=== PATIENT | male | born 1955 | race Caucasian/White ===

== ENCOUNTER 2022-07-11 13:53 | Observation (INO) ==
--- NOTE | 2022-07-11 14:20 | Emergency Department Note ---
Impression & Plan Transient cerebral ischemia, Expressive aphasia ED Provider Note NAME: CARTER BERNSTEIN AGE: 67 SEX: M : 1955 ARRIVES VIA: Walk-In INFORMANT: Patient ED PROVIDER(S): Gael Santamaria DO CHIEF COMPLAINT: word finding HPI: Patient is a 59-year-old male with a previous history of a CABG, multiple stents that presents to the ER for expressive aphasia which occurred around 11- 11:30. Lasted for about 10 minutes. Has resolved. Denies any change in vision. Admits to mild headache. No chest pain or shortness of breath. No focal weakness in the arms or legs. Admits to some intermittent paresthesias in the arms but that is fairly typical for him. No other exacerbating or remitting factors. He is taking Plavix. ROS: See above HPI for pertinent positives & negatives. A total of 10 systems reviewed and were otherwise negative. PAST MEDICAL HISTORY:See Below PAST SURGICAL HISTORY:See Below FAMILY HISTORY:See Below SOCIAL HISTORY:See Below HOME MEDICATIONS:See Below ALLERGIES:See Below VITALS:See Below PHYSICAL EXAMINATION: GENERAL: Sitting up in bed, alert, well appearing, well nourished, no distress, non-toxic EYE EXAM: normal conjunctiva. PERRL and EOM's intact. OROPHARYNX: no exudate, no erythema, lips, buccal mucosa, and tongue normal and mucous membranes are moist NECK: supple, no nuchal rigidity, no adenopathy, non-tender LUNGS: Clear to auscultation. Normal chest wall mechanics HEART: no murmurs, S1 normal and S2 normal ABDOMEN: abdomen soft, non-tender, normo-active bowel sounds, no masses, no rebound or guarding. BACK: Back is symmetrical on inspection and there is no deformity, no midline tenderness, no CVA tenderness. SKIN: no rashes and no bruising UPPER EXTREMITIES: upper extremities are grossly normal. LOWER EXTREMITIES: No pitting edema. NEURO EXAM: Normal sensorium, cranial nerves II-XII intact, normal speech, no weakness of arms, no weakness of legs. No drift. Finger to nose intact. Gross sensation intact. [id number]-pt-[id number] intact. Rapid alternating movements of upper extremities intact MEDICAL DECISION MAKING: Patient is a 59-year-old male who presents ER for the boasting complaint. IV was established with orders obtained. Labs show no significant leukocytosis. Mild anemia 11.8. INR unremarkable. BMP with slightly low chloride at 108. LFTs bilirubin was unremarkable. Troponin was negative. COVID was negative. CT of the head was negative. Unable to perform angio secondary to contrast allergy. He was updated bedside. With the expressive aphasia which after juan f nahid with family lasted for close to 1 hour patient was agreeable for observation. He was seen evaluated by hospitalist service after discussion with Dr. Juno Palacio. Triage Nursing notes reviewed. Limited review of prior medical records performed Vital Signs: reviewed and remarkable for htn Differential diagnosis: Differential Diagnosis includes but is not limited to ischemic Stroke, hemorrhagic stroke, bells palsy, mass, neoplasm, migraine headache, seizure, subarachnoid hemorrhage, TIA, and transient global amnesia. ER treatment provided: See below Diagnostics interpreted by me: ECG: Sinus rhythm rate of 75 Normal axis T wave version inferior leads QTC 435 Cardiac Monitoring: An order was placed for continuous cardiac monitoring. The monitor shows a rate of 80 with sinus rhythm. Laboratory studies: As stated above and show below. Imaging studies: T head was negative Consultation(s): Discussed with Dr. Juno Palacio for further evaluation Procedures: none Critical Care: None Past Med/Surg History Social History Smoking Status: Never smoker Preferred Language: Peruvian Feels Safe at Home: Yes Allergies Allergies Allergy/AdvReac Type Severity Reaction Status Date / Time Penicillins Allergy Intermediate Hives Verified 07/11/22 15:53 Iodinated Contrast Media AdvReac Mild Burning at Verified 07/11/22 15:53 site Home Meds Home Medications Medication Instructions Recorded Confirmed Align Probiotic 1 tab PO QAM 07/11/22 07/11/22 atorvastatin 80 mg tablet 80 mg PO HS 07/11/22 07/11/22 biotin 10 mg tablet 10 mg PO QAM 07/11/22 07/11/22 carvedilol 6.25 mg tablet 6.25 mg PO BID 07/11/22 07/11/22 cholecalciferol (vitamin D3) 50 50 mcg PO BID 07/11/22 07/11/22 mcg (2,000 unit) capsule (Vitamin D3) clopidogrel 75 mg tablet 75 mg PO QAM 07/11/22 07/11/22 coQ10 (ubiquinol) 200 mg capsule 200 mg PO QAM 07/11/22 07/11/22 dapagliflozin 10 mg tablet 10 mg PO QAM 07/11/22 07/11/22 ([facility]) glucosamine sulf dipot 1 cap PO QAM 07/11/22 07/11/22 chlr,msm,chond 550 mg-C 30 mg-dion 1 mg capsule (Glucosamine Chondroitin) multivitamin 1 tab PO QAM 07/11/22 07/11/22 omega 9-ypx-nkw-fish oil 1,200 mg 1 cap PO BID 07/11/22 07/11/22 (144 mg-216 mg) capsule (Fish Oil) sacubitril 24 mg-valsartan 26 mg 1 tab PO BID 07/11/22 07/11/22 tablet (Entresto) Results & Data (ED) Vital Signs Vital Signs - 24 hr 07/11/22 14:01 07/11/22 14:42 07/11/22 16:00 Temperature 36.5 C Temperature Source Temporal Artery Scan Pulse Rate 65 Pulse Rate [Left Finger] 64 89 Pulse Rhythm [Left Finger] Regular Regular Pulse Strength [Left Finger] Respiratory Rate 20 21 18 Respiratory Effort / Characteristics Non-Labored Non-Labored Respiratory Depth Normal Normal Normal Blood Pressure 156/85 H Blood Pressure [Right Arm] 150/109 H 145/108 H Blood Pressure Mean 108 Blood Pressure Mean [Right Arm] 122 120 Blood Pressure Position [Right Arm] Pulse Oximetry 98 98 99 Oxygen Delivery Method Room Air Room Air Room Air Sepsis Recent Fever Within 48 Hours No Sepsis New/Unexplained Change in Mental Status Yes Sepsis Action Taken by Nursing No Action Required 07/11/22 14:45 07/11/22 17:00 07/11/22 20:11 Temperature 36.5 C Temperature Source Oral Pulse Rate 60 Pulse Rate [Left Finger] 87 78 Pulse Rhythm [Left Finger] Regular Regular Pulse Strength [Left Finger] Normal Respiratory Rate 22 20 14 Respiratory Effort / Characteristics Non-Labored Spontaneous Respiratory Depth Normal Normal Normal Blood Pressure Blood Pressure [Right Arm] 144/94 H 145/108 H Blood Pressure Mean Blood Pressure Mean [Right Arm] 110 120 Blood Pressure Position [Right Arm] Sitting Pulse Oximetry 99 97 98 Oxygen Delivery Method Room Air Room Air Room Air Sepsis Recent Fever Within 48 Hours No Sepsis New/Unexplained Change in Mental Status No Sepsis Action Taken by Nursing No Action Required Laboratory Data Result diagrams: 07/11/22 15:34 07/11/22 15:34 Lab Results 07/11/22 07/11/22 07/11/22 Range/Units 14:45 15:34 15:34 WBC 6.06 (4.8-10.8) K/ul RBC 4.32 L (4.63-6.08) M/uL Hgb 11.8 L (14.0-18.0) g/dl Hct 37.6 L (40.1-51.0) % MCV 87.0 (80.0-100.0) fL MCH 27.3 (25.0-34.0) pg MCHC 31.4 L (32.0-36.0) g/dL RDW Std Deviation 42.7 (36.4-46.3) fL RDW Coeff of Maverick 13.3 (11.5-14.5) % Plt Count 276 (130-400) K/uL MPV 9.0 L (9.4-12.4) fL Immature Gran % (Auto) 0.2 % Neut % (Auto) 61.2 % Lymph % (Auto) 24.3 % Chaves % (Auto) 11.4 % Eos % (Auto) 2.1 % Baso % (Auto) 0.8 % Neut # (Auto) 3.71 (1.4-6.5) K/uL Lymph # (Auto) 1.47 (1.2-3.4) K/uL Chaves # (Auto) 0.69 (0.24-0.82) K/uL Eos # (Auto) 0.13 (0-0.50) K/uL Baso # (Auto) 0.05 (0-0.2) K/uL Immature Gran # (Auto) 0.01 (0.00-0.02) K/uL PT 11.9 (9.0-12.0) Seconds INR 1.1 (0.9-1.1) APTT 26.2 (21.0-31.0) Seconds PTT Ratio 1.0 Sodium (136-145) mmol/L Potassium (3.5-5.1) mmol/L Chloride (98-107) mmol/L Carbon Dioxide (21-32) mmol/L Anion Gap (3-11) BUN (6-23) mg/dl Creatinine (0.6-1.4) mg/dl Est Cr Clr Drug Dosing ml/min Est GFR ( Amer) ml/min Est GFR (Non-Af Amer) ml/min BUN/Creatinine Ratio (10-20) Glucose (70-99(Fasting)) mg/dl Calcium (8.5-10.1) mg/dl Magnesium (1.7-2.4) mg/dl Total Bilirubin (0.2-1.0) mg/dl AST (13-39) U/L ALT (7-52) U/L Alkaline Phosphatase (34-104) U/L Troponin I High Sens (0-20) pg/ml Total Protein (6.0-8.3) gm/dl Albumin (3.4-5.0) gm/dl Globulin (2.5-4.0) gm/dl Albumin/Globulin Ratio (0.9-2) SARS-CoV-2, RNA, NAAT NEGATIVE (NEGATIVE) 07/11/22 Range/Units 15:34 WBC (4.8-10.8) K/ul RBC (4.63-6.08) M/uL Hgb (14.0-18.0) g/dl Hct (40.1-51.0) % MCV (80.0-100.0) fL MCH (25.0-34.0) pg MCHC (32.0-36.0) g/dL RDW Std Deviation (36.4-46.3) fL RDW Coeff of Maverick (11.5-14.5) % Plt Count (130-400) K/uL MPV (9.4-12.4) fL Immature Gran % (Auto) % Neut % (Auto) % Lymph % (Auto) % Chaves % (Auto) % Eos % (Auto) % Baso % (Auto) % Neut # (Auto) (1.4-6.5) K/uL Lymph # (Auto) (1.2-3.4) K/uL Chaves # (Auto) (0.24-0.82) K/uL Eos # (Auto) (0-0.50) K/uL Baso # (Auto) (0-0.2) K/uL Immature Gran # (Auto) (0.00-0.02) K/uL PT (9.0-12.0) Seconds INR (0.9-1.1) APTT (21.0-31.0) Seconds PTT Ratio Sodium 138 (136-145) mmol/L Potassium 4.5 (3.5-5.1) mmol/L Chloride 108 H (98-107) mmol/L Carbon Dioxide 23 (21-32) mmol/L Anion Gap 7 (3-11) BUN 16 (6-23) mg/dl Creatinine 0.89 (0.6-1.4) mg/dl Est Cr Clr Drug Dosing 82.0 ml/min Est GFR ( Amer) 101.8 ml/min Est GFR (Non-Af Amer) 87.9 ml/min BUN/Creatinine Ratio 18.0 (10-20) Glucose 104 H (70-99(Fasting)) mg/dl Calcium 9.5 (8.5-10.1) mg/dl Magnesium 2.0 (1.7-2.4) mg/dl Total Bilirubin 0.5 (0.2-1.0) mg/dl AST 15 (13-39) U/L ALT 18 (7-52) U/L Alkaline Phosphatase 61 (34-104) U/L Troponin I High Sens 7.2 (0-20) pg/ml Total Protein 6.5 (6.0-8.3) gm/dl Albumin 4.2 (3.4-5.0) gm/dl Globulin 2.3 L (2.5-4.0) gm/dl Albumin/Globulin Ratio 1.8 (0.9-2) SARS-CoV-2, RNA, NAAT (NEGATIVE) Administered Medications Discontinued Medications Aspirin (Aspirin 81 Mg Chew) 324 mg PO NOW STA Stop: 07/11/22 20:03 Last Admin: 07/11/22 20:10 Dose: 324 mg Documented By: JE Imaging Data Radiologist's Impression: Chest X-Ray 07/11/22 14:17 SINGLE VIEW CHEST CLINICAL HISTORY: Stroke like symptoms. FINDINGS: 2 AP, portable, upright chest radiographs are obtained. No prior studies are available for comparison at the time of dictation. The patient is status post midline sternotomy appear The heart is enlarged noting atherosclerotic calcification of the thoracic aorta. The pulmonary vasculature is noncongested. There is mild bibasilar scarring/atelectasis. Nipple shadows project over the lung bases. The lungs and pleural spaces are otherwise clear. No pneumothorax is seen. There are healed right-sided rib fractures. IMPRESSION: Cardiomegaly with no acute cardiopulmonary abnormality. ACT 112: Negative or not required by law. Electronically signed by: Tai Link M.D. 07/11/2022 3:[address] 07/11/22 14:17 CT SCAN OF THE BRAIN WITHOUT IV CONTRAST CLINICAL HISTORY: Strokelike symptoms. Change in mental status. COMPARISON STUDY: No priors. TECHNIQUE: Unenhanced axial CT scan of the brain is performed from the vertex to the skull base. A dose lowering technique was utilized adhering to the principles of ALARA. CT DOSE: 729.78 mGycm FINDINGS: Brain parenchyma: There is age-related involutional change noting moderate subcortical and periventricular microangiopathic disease. There is no hemorrhage, mass effect, or evidence of acute territorial ischemia by CT criteria. Williamson-white matter differentiation is preserved. No extra-axial fluid collection is seen. Ventricles, sulci, cisterns: Prominent secondary to involutional change. Intracranial vasculature: There is atherosclerotic calcification of the cavernous carotid and vertebral arteries. Calvarium: Unremarkable. Sinuses and mastoids: The visualized paranasal sinuses are clear. The mastoid air cells are well pneumatized. Orbits: The bony orbits are grossly intact. IMPRESSION: There is no hemorrhage, mass effect, or evidence of acute territorial ischemia by CT criteria. ACT 112: Negative or not required by law. Electronically signed by: Tai Link M.D. 07/11/2022 3:09 PM Discharge Plan Visit Data Chief Complaint: TIA Symptoms Stated Complaint: SLURRED SPEECH, HIGH BLOOD PRESSURE ED Provider: Gael Santamaria Discharge Problem: Transient cerebral ischemia, Expressive aphasia Forms Stand Alone Forms: My [facility] Prescriptions Prescriptions: No Action Align Probiotic 1 tab PO QAM multivitamin Tablet 1 tab PO QAM biotin 10 mg Tablet 10 mg PO QAM atorvastatin 80 mg tablet 80 mg PO HS carvedilol 6.25 mg tablet 6.25 mg PO BID clopidogrel 75 mg tablet 75 mg PO QAM cholecalciferol (vitamin D3) [Vitamin D3] 50 mcg (2,000 unit) Capsule 50 mcg PO BID omega 7-bcg-vek-fish oil [Fish Oil] 1,200 (144-216) mg Capsule 1 cap PO BID coQ10 (ubiquinol) 200 mg Capsule 200 mg PO QAM Farxiga 10 mg tablet 10 mg PO QAM Entresto 24-26 mg tablet 1 tab PO BID Glucosamine Chondroitin 550-30-1 mg Capsule 1 cap PO QAM Referrals Referrals: PCP,NO [Primary Care Provider] -
--- NOTE | 2022-07-11 15:05 | XRay Report ---
SINGLE VIEW CHEST CLINICAL HISTORY: Stroke like symptoms. FINDINGS: 2 AP, portable, upright chest radiographs are obtained. No prior studies are available for comparison at the time of dictation. The patient is status post midline sternotomy appear The heart i s enlarged noting atherosclerotic calcification of the thoracic aorta. The pulmonary vasculature is n oncongested. There is mild bibasilar scarring/atelectasis. Nipple shadows project over the lung bases . The lungs and pleural spaces are otherwise clear. No pneumothorax is seen. There are healed right-s ided rib fractures. IMPRESSION: Cardiomegaly with no acute cardiopulmonary abnormality. ACT 112: Negative or not required by law. Electronically signed by: Tai Link M.D. 07/11/2022 3:04 PM
--- NOTE | 2022-07-11 15:11 | CT Scan Report ---
CT SCAN OF THE BRAIN WITHOUT IV CONTRAST CLINICAL HISTORY: Strokelike symptoms. Change in mental status. COMPARISON STUDY: No priors. TECHNIQUE: Unenhanced axial CT scan of the brain is performed from the vertex to the skull base. A do se lowering technique was utilized adhering to the principles of ALARA. CT DOSE: 729.78 mGycm FINDINGS: Brain parenchyma: There is age-related involutional change noting moderate subcortical and periventri cular microangiopathic disease. There is no hemorrhage, mass effect, or evidence of acute territorial ischemia by CT criteria. Williamson-white matter differentiation is preserved. No extra-axial fluid collec tion is seen. Ventricles, sulci, cisterns: Prominent secondary to involutional change. Intracranial vasculature: There is atherosclerotic calcification of the cavernous carotid and vertebr al arteries. Calvarium: Unremarkable. Sinuses and mastoids: The visualized paranasal sinuses are clear. The mastoid air cells are well pneu matized. Orbits: The bony orbits are grossly intact. IMPRESSION: There is no hemorrhage, mass effect, or evidence of acute territorial ischemia by CT shon delcid. ACT 112: Negative or not required by law. Electronically signed by: Tai Link M.D. 07/11/2022 3:09 PM
[2022-07-11 15:48] LABS: Basophils # (auto) 0.05 K/uL (0-0.2); Basophils % (auto) 0.8 %; Eosinophils # (auto) 0.13 K/uL (0-0.50); Eosinophils % (auto) 2.1 %; Hematocrit (blood only) 37.6 % (40.1-51.0); Hemoglobin 11.8 g/dl (14.0-18.0); Immature Granulocytes # (auto) 0.01 K/uL (0.00-0.02); Immature Granulocytes % (auto) 0.2 %; Lymphocytes # (auto) 1.47 K/uL (1.2-3.4); Lymphocytes % (auto) 24.3 %; Mean Corpuscular Hemoglobin 27.3 pg (25.0-34.0); Mean Corpuscular Hgb Conc 31.4 g/dL (32.0-36.0); Monocytes # (auto) 0.69 K/uL (0.24-0.82); Monocytes % (auto) 11.4 %; Neutrophils # (auto) 3.71 K/uL (1.4-6.5); Neutrophils % (auto) 61.2 %; Platelet Count 276 K/uL (130-400); RDW Coefficient of Variation 13.3 % (11.5-14.5); RDW Standard Deviation 42.7 fL (36.4-46.3); Red Blood Count 4.32 M/uL (4.63-6.08); White Blood Count 6.06 K/ul (4.8-10.8)
[2022-07-11 15:57] LABS: INR 1.1 (0.9-1.1); Partial Thromboplastin Time 26.2 Seconds (21.0-31.0); Prothrombin Time 11.9 Seconds (9.0-12.0)
[2022-07-11 16:13] LABS: Albumin Globulin Ratio 1.8 (0.9-2); Albumin Level 4.2 gm/dl (3.4-5.0); Bilirubin,Total 0.5 mg/dl (0.2-1.0); Calcium 9.5 mg/dl (8.5-10.1); Est GFR (African American) 101.8 ml/min; Est GFR (Non-African American) 87.9 ml/min; Globulin 2.3 gm/dl (2.5-4.0); Potassium 4.5 mmol/L (3.5-5.1); Total Protein 6.5 gm/dl (6.0-8.3); Troponin I High Sensitivity 7.2 pg/ml (0-20)
--- NOTE | 2022-07-11 18:24 | History & Physical Report ---
Date of Service July 11, 2022 Assessment & Plan (1) TIA (transient ischemic attack): Plan: 67 year old man with significant cardiovascular history (VT x3, PCI x3) who presented to the ED with new-onset expressive aphasia with negative workup so far who is admitted overnight for full TIA/stroke workup. TIA: CTA head and neck. DAPT: ASA 324 mg, Plavix 75 mg. Awaiting MRI brain in the AM. CAD: continue home regimen: Entresto bid, atorvastatin, carvedilol, dapagliflozin GERD: Famotidine 20 mg. Code: Full code Dispo: Med-Surg with telemetry FEN/GI: Heart healthy DVT Prophylaxis: ASA 324 mg, Plavix 75 mg PT/OT: Consults: None Case management: (2) GERD (gastroesophageal reflux disease): (3) Coronary artery disease: History of Present Illness Primary Care Provider: NO PCP John is a 59 year old man with a PMH of CABG x3, and stents x3, who presents today with a complaint of difficulty word finding that began suddenly this morning. He recalls being able to understand his but being unable to find the words to respond. His recalls he seemed like he was mumbling. His symptoms lasted about 5 minutes before resolving spontaneously. Prior to this episode, he was in his usual state of health and had never had a similar experience before. ROS+ lightheadedness, which he attributes to being dehydrated. Otherwise, he denies LOC, receptive aphasia, vision changes, SOB, chest pain, nausea, vomiting, or motor or sensory weakness. In addition to his CAD, he also has GERD (secondary to distal esophageal narrowing), and osteoarthritis. He is on Plavix monotherapy for anticoagulation. He also takes atorvastatin, Coreg, Farxiga, and Entresto. He has a contrast dye allergy, for which he is usually premedicated without issue. In the ED, CT head and CXR were negative for acute ischemic process. Labs were mostly within normal ranges. Initial troponin was negative. He received aspirin. Plavix was held as he'd taken his morning dose. He was admitted with pending CTA head/neck, MRI brain. Allergies Allergy/AdvReac Type Severity Reaction Status Date / Time Penicillins Allergy Intermediate Hives Verified 07/11/22 15:53 Iodinated Contrast Media AdvReac Mild Burning at Verified 07/11/22 15:53 site Home Medications Medication Instructions Recorded Confirmed Type Align Probiotic 1 tab PO QAM 07/11/22 07/11/22 History atorvastatin 80 mg tablet 80 mg PO HS 07/11/22 07/11/22 History biotin 10 mg tablet 10 mg PO QAM 07/11/22 07/11/22 History carvedilol 6.25 mg tablet 6.25 mg PO BID 07/11/22 07/11/22 History cholecalciferol (vitamin D3) 50 50 mcg PO BID 07/11/22 07/11/22 History mcg (2,000 unit) capsule (Vitamin D3) clopidogrel 75 mg tablet 75 mg PO QAM 07/11/22 07/11/22 History coQ10 (ubiquinol) 200 mg capsule 200 mg PO QAM 07/11/22 07/11/22 History dapagliflozin 10 mg tablet 10 mg PO QAM 07/11/22 07/11/22 History (Farxiga) glucosamine sulf dipot 1 cap PO QAM 07/11/22 07/11/22 History chlr,msm,chond 550 mg-C 30 mg-dion 1 mg capsule (Glucosamine Chondroitin) multivitamin 1 tab PO QAM 07/11/22 07/11/22 History omega 4-ncl-niv-fish oil 1,200 mg 1 cap PO BID 07/11/22 07/11/22 History (144 mg-216 mg) capsule (Fish Oil) sacubitril 24 mg-valsartan 26 mg 1 tab PO BID 07/11/22 07/11/22 History tablet (Entresto) Past Med/Surg History Social History Smoking Status: Former smoker Hx Alcohol Use: Yes Alcohol type: beer and wine Hx Substance Use: Yes Preferred Language: Polish Beliefs That Will Affect Care: None Current Living Situation: Spouse Other Information That Helps Us Care for You: No Feels Safe at Home: Yes Safety Concerns: Feels Safe At This Time Assistive Devices: Hearing Aid - Bilateral Review of Systems Review of Systems: All systems reviewed & are unremarkable except as noted in HPI & below Physical Exam Physical Exam: General: Well-appearing, alert, interactive, and in no acute distress. HEENT: Normocephalic, atraumatic. EOM intact. Good conjugate gaze. Nares patent. Moist mucosal membranes. Neck: Supple. No lymphadenopathy. Normal ROM. CV: Regular rate and rhythm. Normal S1 and S2. No murmurs gallops or rubs. Respiratory: Normal respiratory effort. Lungs clear to auscultation bilaterally. No crackles, rhonchi, or wheezes. Abdomen: Soft, nondistended abdomen. No bruits heard on auscultation. No tenderness to deep palpation. No guarding or rebound. Extremities: Capillary refill <2 sec. 2+ dp equal bilaterally. No pedal edema. Neuro: Alert and oriented x3. Mild right sided droop on CN exam (CN7). Neuro exam otherwise revealed no focal cerebellar, motor or sensory deficits. Skin: Clean, dry, and intact. No rashes, bruises, or erythema. Results & Data Results & Data ([facility]) Vital Signs (Past 12 Hours) Vital Signs Temp Pulse Pulse Resp BP BP Pulse Ox 07/11/22 14:45 36.5 C 60 22 99 07/11/22 16:00 89 18 145/108 H 99 07/11/22 14:42 64 21 150/109 H 98 07/11/22 14:01 36.5 C 65 20 156/85 H 98 O2 Del Method 07/11/22 14:45 Room Air 07/11/22 16:00 Room Air 07/11/22 14:42 Room Air 07/11/22 14:01 Room Air Supervising Physician Co-Signing Physician Notes I personally saw and examined the patient. I verified all garcia points and agree with resident physician Dr Maribell Hernandez with the following exceptions and/or additions: 67 year old male with extensive cardiovascular history from out of area presents with 5-10 minute episode of expressive dysphasia as noted by patient and his . Could understand find but unable to get the right words out. Came out garbled. No other symptoms such as facial droops, hearing, vision, extremity weakness or change in sensation. O/E HS1+2, no murmurs, Chest CTAB, Abdo SNT, CN 2-> 12 intact, no pronator drift, no extremity weakness or change in sensation A/P Suspected TIA - ABCD2 score - 3. CT head negative for intracranial pathology. Ok to have CT angiogram head and neck although need pre-treatment for this. MRI brain w/o contrast routine. Given complete resolution of symptoms no need for speech, PT or OT evals. Will also defer neurology evaluation. Continue his usual blood pressure medication as full stroke not suspected. Lipid panel and HbA1C with AM labs. Recommend DAPT and will add aspirin to his usual clopidogrel. Duration of DAPT depends on CTA findings. GERD - recommend REYNALDO famotidine as above. Mild anemia - unknown baseline, repeat Hgb in AM. Otherwise as above Resident Activity Tracking Resident Involvement: Resident Care Provided Care Provided: Adult [facility] Medicine
[2022-07-11] MEDS ORDERED: ASPIRIN 81 MG CHEW PO STA (20:02)
[2022-07-11] MEDS ORDERED: methylPREDNISolone 40 MG in SYRINGE 0 ML IV ONE ×2 (20:33→22:41)
[2022-07-11] MEDS ORDERED: diphenhydrAMINE 50 MG/ML VIAL IV ONE (20:33)
[2022-07-11] MEDS ORDERED: FAMOTIDINE 20 MG TAB PO ONE (20:41)
[2022-07-11] MEDS ORDERED: CLOPIDOGREL BISULFATE 75 MG TAB PO ONE (20:59)
[2022-07-11] MEDS ORDERED: POLYETHYLENE (MIRALAX) 17 GM PACK PO PRN (21:26)
[2022-07-11] MEDS ORDERED: ACETAMINOPHEN 325 MG TAB PO PRN (21:26)
[2022-07-11] MEDS ORDERED: ATORVASTATIN 40 MG TAB PO SCH (21:26)
[2022-07-11] MEDS ORDERED: PHARMACIST DISCHARGE MED REC CONSULT PRN (21:30)
--- NOTE | 2022-07-11 22:07 | XRay Report ---
ORBIT RADIOGRAPHS 3 VIEWS HISTORY: pre-MRI screening. COMPARISON: None. FINDINGS: There are no radiopaque foreign bodies identified within the orbits. IMPRESSION: No radiopaque foreign bodies identified within the orbits. ACT 112: Negative or not required by law. Electronically signed by: Isai Little M.D. 07/11/2022 10:05 PM
[2022-07-11] MEDS ORDERED: diphenhydrAMINE 50 MG/ML VIAL IV STA (22:39)
[2022-07-12] MEDS ORDERED: OPTIRAY 300 500mL IV ONE (00:12)
[2022-07-12] MEDS: carvediloL 6.25 MG TAB PO SCH ×2 (01:25→09:20)
[2022-07-12] MEDS: VALSARTAN/SACUBITRIL 26/24MG TAB PO SCH ×2 (01:26→09:19)
[2022-07-12] MEDS: OMEGA-3 (PURIFIED FISH OIL) 1 GM CAP PO SCH ×2 (01:26→09:20)
[2022-07-12 06:06] LABS: Basophils # (auto) 0.01 K/uL (0-0.2); Basophils % (auto) 0.3 %; Hematocrit (blood only) 38.4 % (40.1-51.0); Hemoglobin 12.5 g/dl (14.0-18.0); Immature Granulocytes # (auto) 0.01 K/uL (0.00-0.02); Immature Granulocytes % (auto) 0.3 %; Lymphocytes # (auto) 0.45 K/uL (1.2-3.4); Lymphocytes % (auto) 11.7 %; Mean Corpuscular Hemoglobin 27.5 pg (25.0-34.0); Mean Corpuscular Hgb Conc 32.6 g/dL (32.0-36.0); Mean Corpuscular Volume 84.6 fL (80.0-100.0); Mean Platelet Volume 9.4 fL (9.4-12.4); Monocytes # (auto) 0.08 K/uL (0.24-0.82); Monocytes % (auto) 2.1 %; Neutrophils % (auto) 85.6 %; Platelet Count 289 K/uL (130-400); RDW Coefficient of Variation 13.2 % (11.5-14.5); RDW Standard Deviation 41.1 fL (36.4-46.3); Red Blood Count 4.54 M/uL (4.63-6.08); White Blood Count 3.85 K/ul (4.8-10.8)
[2022-07-12 06:21] LABS: Chol HDL Ratio 2.8 (0-5)
[2022-07-12 07:17] LABS: Estimated Average Glucose 120 mg/dl; Hemoglobin A1C 5.8 % (4.5-5.6)
--- NOTE | 2022-07-12 07:44 | Billing Data ---
Date of Service July 11, 2022 Coding Level of Care Code INT OBSERVATION CARE 50M LVL 2
--- NOTE | 2022-07-12 07:46 | CT Scan Report ---
CT ANGIOGRAM OF THE NECK CLINICAL HISTORY: Transient ischemic attack. COMPARISON STUDY: No priors. TECHNIQUE: Following the IV administration of 118 of Optiray 300, CT angiogram of the neck was perfor med from the aortic arch to the skull base. Images are reviewed in the axial, sagittal, and coronal p lanes. 3-D MIPS images are created and assessed. IV contrast was administered without complication. A ll measurements were calculated based on NASCET criteria. A dose lowering technique was utilized adh ering to the principles of ALARA. CT DOSE: 660.42 mGy.cm FINDINGS: Thoracic aorta: There is mild atherosclerotic calcification of the thoracic aorta. Visualized portion s of the thoracic aorta are normal in caliber. The aortic arch demonstrates standard 3-vessel anatomy . Right carotid arterial system: The right common carotid artery is widely patent, as are the right int ernal and external carotid arteries. Calcified plaque is noted in the carotid bulb. Left carotid arterial system: The left common carotid artery is widely patent, as are the left internal communications specialist al and external carotid arteries. Calcified plaque is noted in the carotid bulb. Vertebral arteries: The vertebral arteries are widely patent bilaterally and codominant. Subclavian arteries: Widely patent bilaterally. Intracranial vasculature: The visualized intracranial vessels at the skull base appear patent. Jugular veins: Widely patent bilaterally. Brain parenchyma: The visualized brain parenchyma the skull base is within normal limits no definite lytic interval change. Upper chest: The patient is status post midline sternotomy. Moderate emphysematous changes suggested at the apices. Partially visualized upper lobe lung parenchyma appears clear. Soft tissues: An esophageal diverticulum is suggested above the thoracic inlet. The visualized pharyn geal soft tissues are normal in appearance noting angiographic phase technique. The oropharyngeal air way appears widely patent. The salivary and thyroid glands are normal in appearance. No cervical lymp hadenopathy is seen. Skeletal structures: The skeletal structures are osteopenic. The visualized calvarium at the skull ba se appears intact. The imaged cervical spine is maintained. Multilevel spondylosis. No lytic or blast ic lesions seen. Sinuses and mastoids: There is trace mucosal thickening in the left maxillary antrum. The remaining v isualized paranasal sinuses are clear. The mastoid air cells are well pneumatized. IMPRESSION: Unremarkable CT angiogram of the neck. ACT 112: Negative or not required by law. Electronically signed by: Tai Link M.D. 07/12/2022 7:43 AM
--- NOTE | 2022-07-12 07:58 | CT Scan Report ---
CTA ANGIOGRAPHY OF THE HEAD CLINICAL HISTORY: Transient ischemic attack. COMPARISON STUDY: Head CT July 11, 2022. MRI of the brain July 11, 2022. TECHNIQUE: Helical axial images of the head were obtained following uneventful intravenous administr ation of 118 cc of Optiray. Sagittal and coronal reconstructions were viewed as well as maximal inten sity projections on an independent 3-D workstation. Automated exposure control was utilized for the study. A dose lowering technique was utilized adhering to the principles of ALARA. FINDINGS: The bilateral M1, M2, A1 and A2 segments are patent. There is mild plaque within the intrac ranial vessels. There is no stenosis. No central vessel occlusion is present. There is no intracrania l aneurysm. Posterior circulation is also intact. Ventricular system is unremarkable. Basal cisterns are patent. No acute intracranial hemorrhage is identified on this contrast enhanced exam major dural sinuses are patent. IMPRESSION: No central vessel occlusion. No intracranial aneurysm. ACT 112: Negative or not required by law. Electronically signed by: Juan Martinez M.D. 07/12/2022 7:57 AM
--- NOTE | 2022-07-12 08:34 | Hospitalist Progress Note ---
Date of Service July 12, 2022 Assessment & Plan (1) TIA (transient ischemic attack): Plan: 67 year old man with significant cardiovascular history ([place] x3, PCI x3) who presented to the ED with new-onset expressive aphasia with negative workup so far who is admitted overnight for full TIA/stroke workup. TIA: CTA head and neck. DAPT: ASA 324 mg, Plavix 75 mg. Awaiting MRI brain in the AM. CAD: continue home regimen: Entresto bid, atorvastatin, carvedilol, dapagliflozin GERD: Famotidine 20 mg. Code: Full code Dispo: Med-Surg with telemetry FEN/GI: Heart healthy DVT Prophylaxis: ASA 324 mg, Plavix 75 mg PT/OT: Consults: None Case management: (2) GERD (gastroesophageal reflux disease): (3) Coronary artery disease: Admission and Anticipated Discharge Date Admission Date: July 11, 2022 Results & Data Results & Data ([facility]) Vital Signs (Past 12 Hours) Vital Signs Temp Pulse Pulse Resp BP BP Pulse Ox 07/12/22 07:31 78 07/12/22 03:17 98.1 F 84 20 113/72 98 07/12/22 00:14 98.2 F 68 20 141/94 H 100 07/11/22 23:30 68 18 151/93 H 96 07/11/22 21:00 89 18 153/98 H 98 O2 Del Method 07/12/22 07:31 07/12/22 03:17 Room Air 07/12/22 00:14 Room Air 07/11/22 23:30 Room Air 07/11/22 21:00 Room Air PG Care Time/CCT Total # of Minutes Spent Total Time Spent with Patient: Total time spent is greater than 50% in coordination of care (as documented) at patient's floor/unit and/or counseling patient: Coding Diagnoses TIA (transient ischemic attack) G45.9 GERD (gastroesophageal reflux disease) K21.9 Coronary artery disease I25.10
[2022-07-12] MEDS ORDERED: ASPIRIN 81 MG ECTAB PO SCH (09:00)
[2022-07-12] MEDS ORDERED: MULTIVITAMIN TAB PO SCH (09:00)
[2022-07-12] MEDS ORDERED: NON-FORMULARY MEDICATION (Biotin 10 mg Tablet) PO SCH (09:00)
[2022-07-12] MEDS ORDERED: NON-FORMULARY MEDICATION (Glucos Sul 2kcl-Msm-Chond-C-Mn [Glucosamine Chondroitin] 550-30- PO SCH (09:00)
[2022-07-12] MEDS ORDERED: NON-FORMULARY MEDICATION (Coq10 (Ubiquinol) 200 mg Capsule) PO SCH (09:00)
[2022-07-12] MEDS ORDERED: CLOPIDOGREL BISULFATE 75 MG TAB PO SCH (09:00)
[2022-07-12] MEDS ORDERED: FAMOTIDINE 20 MG TAB PO SCH (09:00)
--- NOTE | 2022-07-12 10:16 | Magnetic Resonance Report ---
MRI OF THE BRAIN WITHOUT CONTRAST CLINICAL HISTORY: Aphasia. Transient ischemic attack. COMPARISON STUDY: Head CT July 11, 2022. TECHNIQUE: Utilizing a 1.5 Leti magnet and dedicated coil, multiplanar, multiecho imaging of the bra in was performed without IV contrast. FINDINGS: There are no foci of restricted diffusion to suggest acute infarct. No acute intracranial h emorrhage, midline shift or mass effect is present. Ventricular system is unremarkable. Basal cistern s are patent. No extra-axial collections are present. Flow-voids for the major intracranial vessels a re present. Numerous white matter T2 hyperintense foci favor small vessel disease. No intracranial ma sses are identified on this unenhanced exam. Calvarial signal is within normal limits. No evidence fo r acute sinusitis. No mastoid fluid. IMPRESSION: 1. No acute intracranial findings. No evidence for acute infarction. 2. Numerous white matter T2 hyperintense foci which favor small vessel disease. ACT 112: Negative or not required by law. Electronically signed by: Juan Martinez M.D. 07/12/2022 10:14 AM
[2022-07-12] MEDS ORDERED: STROKE PATIENT DISCHARGE STA (14:51)
--- NOTE | 2022-07-12 14:54 | Electrocardiogram Report ---
Test Reason : Blood Pressure : / mmHG Vent. Rate : 075 BPM Atrial Rate : 075 BPM P-R Int : 208 ms QRS Dur : 092 ms QT Int : 390 ms P-R-T Axes : 058 057 006 degrees QTc Int : 435 ms Sinus rhythm with occasional Premature ventricular complexes T wave abnormality, consider inferior ischemia Abnormal ECG No previous ECGs available Confirmed by George Gallego ([id number]) on 07/12/2022 2:54:05 PM Referred By: REFERRED SELF Confirmed By:Malcolm Gallego
--- NOTE | 2022-07-12 14:59 | Discharge Summary ---
Date of Service July 12, 2022 Admission HPI Per Admitting Provider John is a 59 year old man with a PMH of CABG x3, and stents x3, who presents today with a complaint of difficulty word finding that began suddenly this morning. He recalls being able to understand his but being unable to find the words to respond. His recalls he seemed like he was mumbling. His symptoms lasted about 5 minutes before resolving spontaneously. Prior to this episode, he was in his usual state of health and had never had a similar experience before. ROS+ lightheadedness, which he attributes to being dehydrated. Otherwise, he denies LOC, receptive aphasia, vision changes, SOB, chest pain, nausea, vomiting, or motor or sensory weakness. In addition to his CAD, he also has GERD (secondary to distal esophageal narrowing), and osteoarthritis. He is on Plavix monotherapy for anticoagulation. He also takes atorvastatin, Coreg, Farxiga, and Entresto. He has a contrast dye allergy, for which he is usually premedicated without issue. In the ED, CT head and CXR were negative for acute ischemic process. Labs were mostly within normal ranges. Initial troponin was negative. He received aspirin. Plavix was held as he'd taken his morning dose. He was admitted with pending CTA head/neck, MRI brain. Principal Diagnosis TIA hypertensive urgency Discharge Exam The patient appeared stable Vital signs as documented. Neurologic exam is alert and oriented, no focal loss of strength or sensation Skin is without bruises or rashes Psychologically is without concerns for anxiety or depression. Discharge Data Allergies Allergy/AdvReac Type Severity Reaction Status Date / Time Penicillins Allergy Intermediate Hives Verified 07/11/22 15:53 Iodinated Contrast Media AdvReac Mild Burning at Verified 07/11/22 15:53 site Consultations 07/11/22 18:08 ED Decision to Admit Stat Ordered Studies 07/11/22 14:17 CT head/brain wo con Stat no acute changes 07/11/22 20:33 CT angio head w con;no acute changes CT angio neck with con ;no acute changes 07/11/22 20:42 MRI Brain [MR brain wo con] Routine no acute changes small vessel disease is suggested Hospital Course (1) TIA (transient ischemic attack): 67 year old man with significant cardiovascular history ([place] x3, PCI x3) who presented to the ED with new-onset expressive aphasia with complete resolution ,negative workup TIA: CTA head and neck. DAPT: ASA 324 mg, Plavix 75 mg. Imaging studies are negative for stroke or significant vascular disease, will ask pt to have 21 days of DAPT then return to plavix at home, to follow up with pcp as soon as able. Cholesterol is favorable and blood pressure is better controlled CAD: HfrEF stable and euvolemic, continue home regimen: Entresto bid, atorvastatin, carvedilol, dapagliflozin, did not show arrhythmia on monitor, is on Entresto so assume have reduced EF at some point in the past GERD: Famotidine 20 mg. Code: Full code (2) GERD (gastroesophageal reflux disease): (3) Coronary artery disease: Total Time Total Time Spent Total Time Spent (In Minutes): It required greater than 30 minutes to prepare this patient for discharge Discharge Plan Discharge Items Patient Disposition: Home - Self-Care Reason For Visit: SLURRED SPEECH, HIGH BLOOD PRESSURE Discharge Diagnosis: transient ischemic attack hypertensive urgency Activity: Per Instructions section Activity Comment: use common sense to increased activity Non-emergency contact: Primary Care Provider Call non-emergency contact if: your symptoms worsen Follow-up/Referrals: Shadi Saucedo [Other] Diet: Heart Healthy Addtl Attending Provider Instructions: please take a baby aspirin or a 81 mg aspirin daily in addition to the clopidogrel for 21 days then drop the aspirin unless instructed otherwise by your primary care provider. Always return if additional symptoms return avoid excessive alcohol, caffeine or sleep deprivation please follow up with your family doctor once return to home Pending Studies at Discharge: No Stand-Alone Forms: My [employer], Smoking Cessation Medications and DC Order Prescriptions: New aspirin 81 mg capsule 81 mg PO DAILY Qty: 21 0RF Continued Align Probiotic 1 tab PO QAM multivitamin Tablet 1 tab PO QAM biotin 10 mg Tablet 10 mg PO QAM atorvastatin 80 mg tablet 80 mg PO HS carvedilol 6.25 mg tablet 6.25 mg PO BID clopidogrel 75 mg tablet 75 mg PO QAM cholecalciferol (vitamin D3) [Vitamin D3] 50 mcg (2,000 unit) Capsule 50 mcg PO BID omega 8-hpq-wxq-fish oil [Fish Oil] 1,200 (144-216) mg Capsule 1 cap PO BID coQ10 (ubiquinol) 200 mg Capsule 200 mg PO QAM Farxiga 10 mg tablet 10 mg PO QAM Entresto 24-26 mg tablet 1 tab PO BID Glucosamine Chondroitin 550-30-1 mg Capsule 1 cap PO QAM Discharge Orders: Discharge Order (Routine); Ordered 07/12/22 Ordered By: Bhaskar Barrow Admission Data Admit Date/Time: 07/11/22 20:01 Attending Provider: Bhaskar Barrow Admit Provider: Jyoti Hernandez Primary Care Provider: Shadi Saucedo Other Providers: Juno Palacio Coding Level of Care Code D/C DAY MANAGEMENT >30 MINS Diagnoses TIA (transient ischemic attack) G45.9 GERD (gastroesophageal reflux disease) K21.9 Coronary artery disease I25.10
--- NOTE | 2022-07-12 15:22 | Pharmacy Report ---
Pharmacist Stroke Counseling - Date of Service July 12, 2022 - Scope: Pharmacy has been consulted to provide medication discharge counseling for this patient admitted with transient ischemic attack as per the Pharmacist Discharge Counseling for Stroke Patients Protocol. - Medications on Discharge: Home Medications Medication Instructions Recorded Confirmed Align Probiotic 1 tab PO QAM 07/11/22 07/11/22 atorvastatin 80 mg tablet 80 mg PO HS 07/11/22 07/11/22 biotin 10 mg tablet 10 mg PO QAM 07/11/22 07/11/22 carvedilol 6.25 mg tablet 6.25 mg PO BID 07/11/22 07/11/22 cholecalciferol (vitamin D3) 50 50 mcg PO BID 07/11/22 07/11/22 mcg (2,000 unit) capsule (Vitamin D3) clopidogrel 75 mg tablet 75 mg PO QAM 07/11/22 07/11/22 coQ10 (ubiquinol) 200 mg capsule 200 mg PO QAM 07/11/22 07/11/22 dapagliflozin 10 mg tablet 10 mg PO QAM 07/11/22 07/11/22 (Farxiga) glucosamine sulf dipot 1 cap PO QAM 07/11/22 07/11/22 chlr,msm,chond 550 mg-C 30 mg-dion 1 mg capsule (Glucosamine Chondroitin) multivitamin 1 tab PO QAM 07/11/22 07/11/22 omega 3-wgf-xru-fish oil 1,200 mg 1 cap PO BID 07/11/22 07/11/22 (144 mg-216 mg) capsule (Fish Oil) sacubitril 24 mg-valsartan 26 mg 1 tab PO BID 07/11/22 07/11/22 tablet (Entresto) New Rx's Medication Instructions Recorded aspirin 81 mg capsule 81 mg PO DAILY #21 caps 07/12/22 - Action: The above medications, specifically ones for stroke treatment/prophylaxis, have been reviewed in detail with the patient and/or patient chemical sales representative(s) prior to discharge. This includes indication, common adverse reactions, drug interactions, and medication administration. Medication counseling has been employed using the teach-back method to ensure understanding. - Outcome: The patient and/or patient chemical sales representative(s) have demonstrated understanding of the medications. Additional comments: Counseled patient on the addition of aspirin 81 mg daily x 21 days to home regimen. Instructed him to STOP aspirin after 21 days and continue Plavix, which he is already taking. Patient reports taking a baby aspirin in the past and reports no side effects. Advised him to purchase enteric coated product. Reviewed s/s of bleeding and when to contact PCP with concerns. If he were to have a procedure (medical or dental) scheduled in the future, he should discuss a plan for aspirin and plavix around the time of the procedure to prevent bleeding. Patient voices understanding of the above Thank you for allowing pharmacy to be involved in the care of this patient. Please call [phone] with any additional questions
== END 2022-07-12 16:35 | disposition home or self-care (01) ==
LOC: EDINP 13:53 → ED 13:53 → SUATTDRO 20:01 → 4W 21:26